=== PATIENT | female | born 1970 | race Caucasian/White ===

== ENCOUNTER 2021-08-31 13:15 | Emergency (ER) | payer OTHER ==
[~2021-08-31] VITALS: Ht 167.6 cm; Wt 82.6 kg
[2021-08-31 13:23] VITALS: BP 150/84
[2021-08-31] MEDS ORDERED: DOXYCYCLINE 10100 MG PO (13:54)
== END 2021-08-31 13:58 | disposition home or self-care (01) ==
LOC: ER 13:15
DX: L03.115 Cellulitis of right lower limb (principal); E11.9 Type 2 diabetes mellitus without complications; Z90.49 Acquired absence of other specified parts of digestive tract; Z98.890 Other specified postprocedural states; Z86.16 Personal history of COVID-19; Z94.1 Heart transplant status; Z88.5 Allergy status to narcotic agent; Z88.2 Allergy status to sulfonamides; Z91.09 Other allergy status, other than to drugs and biological substances